=== PATIENT | female | born 1995 | race Caucasian/White ===

== ENCOUNTER → 2020-02-10 | Outpatient (CLI) | payer OTHER ==
[~2020-02-10] MED LIST: NORCO 5-325 TA1 EACH PO
== END ==
LOC: LAB 08:20
PROVIDERS: ATTEND Nurse Practitioner
DX: Z20.828 Contact with and (suspected) exposure to other viral communicable diseases (principal)

== ENCOUNTER → 2021-01-28 | Outpatient (CLI) | payer OTHER | LOC: CAT 13:24 | PROVIDERS: ATTEND Nurse Practitioner | DX: N20.0 Calculus of kidney (principal); D25.9 Leiomyoma of uterus, unspecified; R19.7 Diarrhea, unspecified ==